=== PATIENT | female | born 1990 | race African-American/Black ===

== ENCOUNTER 2025-02-20 12:02 | Emergency (ER) | payer OTHER ==
[~2025-02-20] VITALS: Ht 162.6 cm; Wt 52.0 kg
[2025-02-20 12:04] VITALS: O2SAT 98
[2025-02-20] MEDS: PANTOPRAZOLE SODIUM 40 MG/VIAL IV ONE (12:40)
[2025-02-20] MEDS: SODIUM CHLORIDE 0.9% 1,000 ML IV ONE (12:40)
[2025-02-20] MEDS: ONDANSETRON HCL 4MG/2ML INJ IV ONE (12:40)
[2025-02-20 12:55] LABS: BASOPHILS % 1.4 % (0.0-2.0); EOSINOPHILS % 1.4 % (0.0-5.0); HEMATOCRIT. 41.9 % (36.0-48.0); HEMOGLOBIN. 14.2 g/dL (12.0-16.0); LYMPHOCYTES % 35.5 % (20.0-50.0); MEAN PLATELET VOLUME 7.4 fl (7.4-10.4); MONOCYTES % 7.1 % (2.0-8.0); NEUTROPHILS % 54.6 % (40.0-76.0); PLATELET 337 x1000/uL (130-400); RED BLOOD CELL COUNT 4.50 mill/uL (4.2-5.4); RED CELL DISTRIBUTION WIDTH 12.5 % (11.6-14.6)
[2025-02-20 13:05] LABS: HCG SCREEN NEGATIVE
[2025-02-20 13:07] LABS: CREATININE 1.0 mg/dL (0.6-1.0)
[2025-02-20 13:08] LABS: ETHANOL BLOOD < 10 mg/dL (<10); UREA NITROGEN BLOOD 13 mg/dL (9-23)
[2025-02-20 13:09] LABS: ASPARTATE AMINOTRANSFERASE 18 IU/L (<34); BILIRUBIN DIRECT 0.3 mg/dL (<=3.0)
[2025-02-20 13:10] LABS: BILIRUBIN TOTAL 0.9 mg/dL (0.1-1.0); PHOSPHORUS 2.0 mg/dL (2.5-4.9); PROTEIN TOTAL 7.7 g/dL (6.0-8.3); TROPONIN I HIGH SENSITIVITY < 4 ng/L (3.0-34)
[2025-02-20 13:12] LABS: MONOTEST NEGATIVE (NEGATIVE)
[2025-02-20 13:14] LABS: T4 FREE 1.31 ng/dL (0.89-1.76)
[2025-02-20 13:16] LABS: INR 1.1
[2025-02-20] MEDS: KCL 20MEQ/100ML PREMIX 100 ML IV SCH (13:34)
[2025-02-20] MEDS: POTASSIUM-SODIUM PHOSPHATE POWDER PACKET PO ONE (13:47)
[2025-02-20 17:11] VITALS: BP 106/81; PULSE 95; RESP 15; TEMP 37.1; O2SAT 99
== END 2025-02-20 17:30 | disposition short-term general hospital (02) ==
LOC: ER 12:33 → CMPBEDREQ 18:21
DX: E87.6 Hypokalemia (principal); E83.39 Other disorders of phosphorus metabolism; K29.70 Gastritis, unspecified, without bleeding; J45.909 Unspecified asthma, uncomplicated; R06.02 Shortness of breath; Z20.822 Contact with and (suspected) exposure to COVID-19
CPT/HCPCS: 80076; 80048; 80320; 84703; 83880; 84439; 83605; 83690; 83735; 84100; 84443; 85025; 85610; 86308; 87040; 84484; 84145; 93005; 96361; 96365; 96366; 96375; 99291; 87426; 84481; J2405; J2470; J3480; J7030; Z7610 ×2; A4606; G0480